=== PATIENT | female | born 2000 | race American Indian/Alaskan Native ===

== ENCOUNTER 2020-12-06 12:01 | Emergency (ER) | payer SELFPAY ==
--- NOTE | 2020-12-06 12:40 | Emergency Department Report ---
ED HPI - General Stated complaint: POSITIVE TEST/NAUSEA Time Seen by Provider: 12/06/20 12:33 - History of Present Illness Initial comments: There is a pleasant 20-year-old female presents the emergency department for evaluation of nausea. Patient reports she took a positive home test and has been feeling nauseous specifically in the morning since this happened. She reports her last menstrual cycle was first week of September. She denies any other symptoms. Denies any associated fever, chills, night sweats, headache, dizziness, blurry vision, nausea, vomiting, diarrhea, chest pain, shortness of breath or any other associated symptoms. - Related Data Previous Rx's Medication Instructions Recorded Last Taken Type Doxylamine Succinate/Vit B6 1 - 2 each PO QHS #20 tablet. 12/06/20 Unknown Rx [Leah Pappas 10-10 mg Tablet] 147/Iron/Folic Acid 1 each PO DAILY #30 tablet 12/06/20 Unknown Rx [Azesco Tablet] Allergies Allergy/AdvReac Type Severity Reaction Status Date / Time No Known Allergies Allergy Verified 09/25/15 01:01 ED Review of Systems ROS: Stated complaint: POSITIVE TEST/NAUSEA Other details as noted in HPI Comment: All other systems reviewed and negative Constitutional: denies: chills, fever Eyes: denies: eye pain, eye discharge, vision change ENT: denies: ear pain, throat pain Respiratory: denies: cough, shortness of breath, wheezing Cardiovascular: denies: chest pain, palpitations Endocrine: no symptoms reported Gastrointestinal: as per HPI, nausea. denies: abdominal pain, diarrhea Genitourinary: denies: urgency, dysuria, discharge Musculoskeletal: denies: back pain, joint swelling, arthralgia Skin: denies: rash, lesions Neurological: denies: headache, weakness, paresthesias Psychiatric: denies: anxiety, depression Hematological/Lymphatic: denies: easy bleeding, easy bruising ED Past Medical Hx - Past Medical History Hx Asthma: Yes - Family History Family history: no significant - Social History Smoking Status: Never Smoker Substance Use Type: None - Medications Home Medications: Home Medications Medication Instructions Recorded Confirmed Last Taken Type Doxylamine Succinate/Vit B6 1 - 2 each PO QHS #20 tablet. 12/06/20 Unknown Rx [Leah Pappas 10-10 mg Tablet] 147/Iron/Folic Acid 1 each PO DAILY #30 tablet 12/06/20 Unknown Rx [Azesco Tablet] ED Physical Exam - General Limitations: No Limitations General appearance: alert, in no apparent distress - Head Head exam: Present: atraumatic, normocephalic - Eye Eye exam: Present: normal appearance, PERRL, EOMI Pupils: Present: normal accommodation - ENT ENT exam: Present: normal exam, normal orophraynx, mucous membranes moist - Neck Neck exam: Present: normal inspection, full ROM. Absent: tenderness, meningismus - Respiratory Respiratory exam: Present: normal lung sounds bilaterally. Absent: respiratory distress, wheezes, rales, rhonchi, stridor - Cardiovascular Cardiovascular Exam: Present: regular rate, normal rhythm, normal heart sounds. Absent: systolic murmur, diastolic murmur, rubs, gallop - GI/Abdominal GI/Abdominal exam: Present: soft, normal bowel sounds. Absent: distended, tenderness, guarding, rebound, rigid - Extremities Exam Extremities exam: Present: normal inspection, full ROM, normal capillary refill. Absent: tenderness - Back Exam Back exam: Present: normal inspection, full ROM. Absent: tenderness, CVA tenderness (R), CVA tenderness (L) - Neurological Exam Neurological exam: Present: alert, oriented X3, normal gait - Psychiatric Psychiatric exam: Present: normal affect, normal mood - Skin Skin exam: Present: warm, dry, intact, normal color. Absent: rash ED Medical Decision Making - Medical Decision Making Patient is nontoxic and in no acute distress. Her exam was unremarkable. She had no symptoms of vaginal bleeding, abdominal pain or any other associated symptoms. I did offer work-up including ultrasound lab work however she politely declined and felt comfortable following up with an outpatient DOCUMENT REVIEW ATTORNEY to do her routine care. I will recommend vitamins and Diclegis for her nausea related to . Recommended frequent small meals, peppermint or letha and return to the emergency department any change or worsening symptoms. She verbalized understanding of the diagnosis, treatment plan and follow-up instructions and all of her questions were answered. - Differential Diagnosis Hyperemesis gravidarum, nausea, enteritis Critical care attestation.: If time is entered above; I have spent that time in minutes in the direct care of this critically ill patient, excluding procedure time. ED Disposition Clinical Impression: Nausea/vomiting in Disposition: DC- TO HOME OR SELFCARE Is pt being admited?: No Condition: Stable Instructions: Morning Sickness, [id number] Prescriptions: Doxylamine Succinate/Vit B6 [Diclegis 10-10 mg Tablet] 1 - 2 each PO QHS #20 tablet. 147/Iron/Folic Acid [Azesco Tablet] 1 each PO DAILY #30 tablet Referrals: [facility] [Provider Group] - 3-5 Days ORIANA FREIRE MD [Staff Physician] - 3-5 Days Forms: Work/School Release Form(ED) Time of Disposition: 12:41
[2020-12-06 12:53] VITALS: BP 107/52
== END 2020-12-06 12:56 | disposition home or self-care (01) ==
LOC: ED 12:01
DX: O21.8 Other vomiting complicating pregnancy (principal); Z3A.01 Less than 8 weeks gestation of pregnancy; Z79.899 Other long term (current) drug therapy
CPT/HCPCS: 99282

== ENCOUNTER 2020-12-08 18:59 | Emergency (ER) | payer SELFPAY ==
[2020-12-08 19:16] VITALS: BP 117/48
[2020-12-08 19:56] LABS: Bilirubin,Urine NEG (Negative); Blood,Urine NEG (Negative); Color,Urine Yellow (Yellow); Mucus,Urine FEW /HPF; Protein,Urine <15 mg/dL mg/dL (Negative); Urobilinogen,Urine < 2.0 mg/dL (<2.0)
[2020-12-08 20:06] LABS: HCG Qualitative,Urine Positive (Negative)
--- NOTE | 2020-12-08 20:29 | Emergency Department Report ---
Vomiting/Diarrhea - [facility] Chief Complaint: Nausea/Vomiting/Diarrhea Stated Complaint: VOMITING BLOOD;NAUSEA Time Seen by Provider: 12/08/20 19:56 ED Review of Systems ROS: Stated complaint: VOMITING BLOOD;NAUSEA Other details as noted in HPI ED Past Medical Hx - Past Medical History Previous Medical History?: Yes Hx Asthma: Yes - Surgical History Past Surgical History?: No - Social History Smoking Status: Never Smoker Substance Use Type: None - Medications Home Medications: Home Medications Medication Instructions Recorded Confirmed Last Taken Type Doxylamine Succinate/Vit B6 1 - 2 each PO QHS #20 tablet.dr 12/06/20 Unknown Rx [Diclegis Dr 10-10 mg Tablet] 147/Iron/Folic Acid 1 each PO DAILY #30 tablet 12/06/20 Unknown Rx [Azesco Tablet] Vomiting Diarrhea Exam - Exam General: Vital signs noted. No distress. Alert and acting appropriately. Neurologic: Alert and oriented, no deficits. Musculoskeletal: Unremarkable. ED Course Vital Signs 12/08/20 19:13 Temperature 99.7 F H Pulse Rate 74 Respiratory 18 Rate Blood Pressure 117/48 O2 Sat by Pulse 100 Oximetry Critical care attestation.: If time is entered above; I have spent that time in minutes in the direct care of this critically ill patient, excluding procedure time.
--- NOTE | 2020-12-08 21:21 | Emergency Department Report ---
ED General Adult HPI - General Chief complaint: Nausea/Vomiting/Diarrhea Stated complaint: VOMITING BLOOD;NAUSEA Time Seen by Provider: 12/08/20 19:56 Source: patient Mode of arrival: Ambulatory Limitations: No Limitations - History of Present Illness Initial comments: 20 y/o female comes in reports that she is nausea. She denies any abd pain. No vag d/c or vag bleeding. Was seen here 2 days ago and was placed on anti nausea but did not get it filled. Onset/Timin -: week(s) Severity scale (0 -10): 0 Consistency: intermittent Treatments Prior to Arrival: none - Related Data Previous Rx's Medication Instructions Recorded Last Taken Type Doxylamine Succinate/Vit B6 1 - 2 each PO QHS #20 tablet. 12/06/20 Unknown Rx [Leah Pappas 10-10 mg Tablet] 147/Iron/Folic Acid 1 each PO DAILY #30 tablet 12/06/20 Unknown Rx [Azesco Tablet] Allergies Allergy/AdvReac Type Severity Reaction Status Date / Time No Known Allergies Allergy Verified 09/25/15 01:01 ED Review of Systems ROS: Stated complaint: VOMITING BLOOD;NAUSEA Other details as noted in HPI Comment: All other systems reviewed and negative ED Past Medical Hx - Past Medical History Previous Medical History?: Yes Hx Asthma: Yes - Surgical History Past Surgical History?: No - Social History Smoking Status: Never Smoker Substance Use Type: None - Medications Home Medications: Home Medications Medication Instructions Recorded Confirmed Last Taken Type Doxylamine Succinate/Vit B6 1 - 2 each PO QHS #20 tablet. 12/06/20 Unknown Rx [Leah Pappas 10-10 mg Tablet] 147/Iron/Folic Acid 1 each PO DAILY #30 tablet 12/06/20 Unknown Rx [Azesco Tablet] ED Physical Exam - General Limitations: No Limitations General appearance: alert, in no apparent distress - Head Head exam: Present: atraumatic, normocephalic - Eye Eye exam: Present: normal appearance - Extremities Exam Extremities exam: Present: normal inspection - Back Exam Back exam: Present: normal inspection - Neurological Exam Neurological exam: Present: alert, oriented X3, normal gait - Psychiatric Psychiatric exam: Present: normal affect, normal mood - Skin Skin exam: Present: warm, dry, intact, normal color. Absent: rash ED Course Vital Signs 12/08/20 19:13 Temperature 99.7 F H Pulse Rate 74 Respiratory 18 Rate Blood Pressure 117/48 O2 Sat by Pulse 100 Oximetry ED Medical Decision Making - Medical Decision Making 20 y/o female comes in reports that she is nausea. She denies any abd pain. No vag d/c or vag bleeding. Was seen here 2 days ago and was placed on anti nausea but did not get it filled. Critical care attestation.: If time is entered above; I have spent that time in minutes in the direct care of this critically ill patient, excluding procedure time. ED Disposition Clinical Impression: Nausea/vomiting in Disposition: DC-01 TO HOME OR SELFCARE Is pt being admited?: No Does the pt Need Aspirin: No Condition: Stable Instructions: Nausea and Vomiting, Adult, [id number] Additional Instructions: Please filled your prescription. And follow with a [facility]ISING [facility]. Referrals: PRIMARY [facility]ARE, [Primary Care Provider] - 3-5 Days [facility] [Provider Group] - 3-5 Days [facility] [Provider Group] - 3-5 Days
== END 2020-12-08 21:37 | disposition home or self-care (01) ==
LOC: ED 18:59
DX: O21.8 Other vomiting complicating pregnancy (principal); Z79.899 Other long term (current) drug therapy
CPT/HCPCS: 36415; 81001; 81025; 84702; 99283

== ENCOUNTER 2021-07-23 07:03 | Inpatient (IN) | payer MEDICAID ==
[2021-07-23] MEDS ORDERED: AMPICILLIN/NS 2 GM/100 ML 2 GM/100 ML BAG IV ONE (08:12)
[2021-07-23] MEDS ORDERED: LOPERAMIDE 2 MG CAP PO PRN (08:12)
[2021-07-23] MEDS ORDERED: LIDOCAINE (2%) 20 MG/1 ML VIAL 20 ML MDV INFILTRATI ONE (08:12)
[2021-07-23] MEDS ORDERED: TERBUTALINE 1 MG/1 ML INJ SUB-Q PRN (08:12)
[2021-07-23] MEDS ORDERED: OXYTOCIN 10 UNIT/1 ML INJ IM PRN (08:12)
[2021-07-23] MEDS ORDERED: METHYLERGONOVINE MALEATE 0.2 MG/ML VIAL IM PRN (08:12)
[2021-07-23] MEDS ORDERED: CARBOPROST TROMETHAMINE 250 MCG/1 ML INJ IM PRN (08:12)
[2021-07-23] MEDS ORDERED: miSOPROStol 200 MCG TAB PR PRN (08:12)
[2021-07-23] MEDS ORDERED: ePHEDrine SULFATE 50 MG/1 ML INJ IV PRN (08:30)
[2021-07-23] MEDS ORDERED: fentaNYL 100 MCG/2 ML INJ IV PRN (08:30)
[2021-07-23] MEDS ORDERED: BUTORPHANOL 2 MG/1 ML INJ IV PRN (08:30)
[2021-07-23] MEDS ORDERED: ACETAMINOPHEN 325 MG TAB PO PRN ×2 (09:00→11:00)
[2021-07-23] MEDS ORDERED: ONDANSETRON 4 MG/2 ML INJ IV PRN ×2 (09:00→11:00)
[2021-07-23] MEDS ORDERED: OXYTOCIN DRIP 30 UNITS/500 ML BAG IV SCH ×2 (09:00)
[2021-07-23] MEDS ORDERED: LACTATED RINGERS 1,000 ML IV SCH (09:00)
[2021-07-23] MEDS ORDERED: NalbUPHINE 10 MG/1 ML INJ IV PRN (09:00)
[2021-07-23] MEDS ORDERED: SODIUM CHLORIDE 0.9% 500 ML 500 ML IV NR (10:00)
[2021-07-23] MEDS ORDERED: HYDROcodone/ACETAMINOPHEN 5-325 MG TAB PO PRN (10:00)
[2021-07-23] MEDS ORDERED: diphenhydrAMINE 25 MG CAP PO PRN (10:00)
[2021-07-23] MEDS ORDERED: WITCH HAZEL/ GLYCERIN PAD TP PRN (10:00)
--- NOTE | 2021-07-23 10:09 | History and Physical Report ---
History of Present Illness Date of examination: 07/23/21 Date of admission: 07/23/21 07:04 Chief complaint: Active labor at term. No care. History of present illness: . previous vag delivery. Past History Past Medical History: no pertinent history - Obstetrical History Expected Date of Delivery: 07/26/21 Actual Gestation: 39 Week(s) 4 Day(s) : 2 Medications and Allergies Allergies Allergy/AdvReac Type Severity Reaction Status Date / Time No Known Allergies Allergy Verified 09/25/15 01:01 Home Medications Medication Instructions Recorded Confirmed Last Taken Type Doxylamine Succinate/Vit B6 1 - 2 each PO QHS #20 tablet. 12/06/20 Unknown Rx [Diclegis Dr 10-10 mg Tablet] 147/Iron/Folic Acid 1 each PO DAILY #30 tablet 12/06/20 Unknown Rx [Azesco Tablet] Active Meds: Active Medications Acetaminophen (Acetaminophen 325 Mg Tab) 650 mg PO Q4H PRN PRN Reason: Pain, Mild (1-3) Acetaminophen (Acetaminophen 325 Mg Tab) 650 mg PO Q4H PRN PRN Reason: Pain MILD(1-3)/Fever >100.5/SONI Hydrocodone Bitart/Acetaminophen (Hydrocodone/Acetaminophen 5-325 Mg Tab) 2 each PO Q6H PRN PRN Reason: Pain, Moderate (4-6) Bisacodyl (Bisacodyl 10 Mg Rect Supp) 10 mg IL BID PRN PRN Reason: Constipation Butorphanol Tartrate (Butorphanol 2 Mg/1 Ml Inj) 2 mg IV Q2H PRN PRN Reason: Pain , Severe (7-10) Last Admin: 07/23/21 08:39 Dose: 2 mg Documented by: Carboprost Tromethamine (Carboprost Tromethamine 250 Mcg/1 Ml Inj) 250 mcg IM ONCE PRN PRN Reason: Uterine Bleeding Stop: 07/24/21 20:00 Diphenhydramine HCl (Diphenhydramine 25 Mg Cap) 25 mg PO Q6H PRN PRN Reason: Itching Ephedrine Sulfate (Ephedrine Sulfate 50 Mg/1 Ml Inj) 10 mg IV Q2M PRN PRN Reason: Hypotension Fentanyl (Fentanyl 100 Mcg/2 Ml Inj) 100 mcg IV Q2H PRN PRN Reason: Pain,Severe (7-10) LABOR PAIN Oxytocin/Sodium Chloride (Pitocin/Ns 30 Unit/500ml) 30 units in 500 mls @ 2 mls/hr IV TITR JL; Protocol Last Admin: 07/23/21 09:22 Dose: 4 ml/hr, 4 mls/hr Documented by: Lactated Ringer's (Lactated Ringers) 1,000 mls @ 125 mls/hr IV DIRECT JL Last Admin: 07/23/21 08:39 Dose: 125 mls/hr Documented by: Oxytocin/Sodium Chloride (Pitocin/Ns 30 Unit/500ml) 30 units in 500 mls @ 40 m ls/hr IV TITR JL; Protocol Sodium Chloride (Nacl 0.9% 500 Ml) 500 mls @ 0 mls/hr IV ONCE@1000 NR Stop: 07/23/21 20:00 Ibuprofen (Ibuprofen 600 Mg Tab) 600 mg PO Q6H JL Loperamide HCl (Loperamide 2 Mg Cap) 2 mg PO ONCE PRN PRN Reason: give with Hemabate Stop: 07/24/21 20:00 Magnesium Hydroxide (Magnesium Hydroxide (Mom) Oral Liqd Udc) 30 ml PO HS PRN PRN Reason: Constipation Methylergonovine Maleate (Methylergonovine Maleate 0.2 Mg/Ml Vial) 0.2 mg IM ONCE PRN PRN Reason: Uterine Bleeding Stop: 07/24/21 20:00 Mineral Oil (Mineral Oil 30 Ml Oral Liqd) 30 ml PO QHS PRN PRN Reason: Constipation Misoprostol (Misoprostol 200 Mcg Tab) 800 mcg IL ONCE PRN PRN Reason: Uterine Bleeding Stop: 07/24/21 20:00 Multi-Ingredient Ointment (Lanolin/Zinc/Dimethicone (Lansinoh) 7 Gm) 1 applic TP PRN PRN PRN Reason: Sore Nipples Nalbuphine HCl (Nalbuphine 10 Mg/1 Ml Inj) 10 mg IV Q2H PRN PRN Reason: Pain, Moderate (4-6) Ondansetron HCl (Ondansetron 4 Mg/2 Ml Inj) 4 mg IV Q8H PRN PRN Reason: Nausea And Vomiting Ondansetron HCl (Ondansetron 4 Mg/2 Ml Inj) 4 mg IV Q8H PRN PRN Reason: Nausea And Vomiting Oxytocin (Oxytocin 10 Unit/1 Ml Inj) 10 unit IM ONCE PRN PRN Reason: Uterine Bleeding Stop: 07/24/21 20:00 Promethazine HCl (Promethazine 25 Mg Rect Supp) 25 mg IL Q6H PRN PRN Reason: Nausea And Vomiting Promethazine HCl (Promethazine 25 Mg Tab) 25 mg PO Q6H PRN PRN Reason: Nausea And Vomiting Sodium Chloride (Sodium Chloride 0.9% 10 Ml Flush Syringe) 10 ml IV PRN NR Terbutaline Sulfate (Terbutaline 1 Mg/1 Ml Inj) 0.25 mg SUB-Q ONCE PRN PRN Reason: Hyperstimulation/Hypertonicity Stop: 07/24/21 20:00 Witch Isabell/Glycerin (Witch Isabell/ Glycerin Pad) 1 each TP PRN PRN PRN Reason: Hemorrhoid/cleansing/soothing Review of Systems All systems: negative - Vital Signs Vital signs: Vital Signs Pulse BP 90 119/61 07/23/21 07:27 07/23/21 07:27 Temp Pulse Resp BP Pulse Ox 98.2 F 60 17 135/60 97 07/23/21 07:51 07/23/21 09:59 07/23/21 07:51 07/23/21 09:55 07/23/21 09:59 - Physical Exam Lungs: Positive: Normal air movement Abdomen: Positive: normal appearance, normal bowel sounds Genitourinary (Female): Positive: normal external genitalia, normal perenium Vulva: both: normal Vagina: Positive: normal moisture Uterus: Positive: enlarged, normal contour Anus/Rectum: Positive: normal perianal skin Extremities: Positive: normal Deep Tendon Reflex Grade: Normal +2 - Obstetrical FHR: auscultation normal Cervical Dilatation: 10 Cervical Effacement Percentage: 100 station: 0 Uterine Contraction Frequency (min): q3min Uterine Contraction Pattern: Regular Results All other labs normal. Assessment and Plan - Patient Problems (1) Term Current Visit: Yes Status: Acute (2) Active labor at term Current Visit: Yes Status: Acute Plan to address problem: Vaginal delivery imminent.
--- NOTE | 2021-07-23 10:11 | Procedure Note ---
OB Delivery Note - Delivery Date of Delivery: 07/23/21 Surgeon: LUCIA NDIAYE Estimated blood loss: other (979cc) - Vaginal Delivery position: OA Intrapartum events: none Delivery induction: none Delivery augmentation: rupture of membranes, pitocin Delivery monitor: external FHT, external uterine Route of delivery: Delivery placenta: spontaneous Episiotomy: none Delivery laceration: none Anesthesia: none - Infant B at 1 minute: 8 at 5 minutes: 9
[2021-07-23 10:49] LABS: Basophils % (Auto) 0.2 % (0.0-1.8); Eosinophils % (Auto) 0.1 % (0.0-4.3); Hematocrit 30.5 % (30.3-42.9); Hemoglobin 10.1 gm/dl (10.1-14.3); Lymphocytes # (Auto) 1.6 K/mm3 (1.2-5.4); Mean Corpuscular HGB Conc 33 % (30-34); Mean Corpuscular Volume 71 fl (79-97); Monocytes # (Auto) 1.2 K/mm3 (0.0-0.8); Monocytes % (Auto) 12.3 % (0.0-7.3); Platelet Count 477 K/mm3 (140-440)
[2021-07-23 10:53] LABS: Red Cell Distribution Width 20.6 % (13.2-15.2)
[2021-07-23] MEDS ORDERED: PROMETHAZINE 25 MG TAB PO PRN (11:00)
[2021-07-23] MEDS ORDERED: PROMETHAZINE 25 MG RECT SUPP PR PRN (11:00)
[2021-07-23] MEDS ORDERED: LANOLIN/ZINC/DIMETHICONE (LANSINOH) 7 GM TP PRN (11:00)
[2021-07-23] MEDS: IBUPROFEN 600 MG TAB PO SCH ×2 (16:09→23:12)
[2021-07-23 18:26] LABS: Bilirubin,Urine NEG (Negative); Blood,Urine LG (Negative); Color,Urine Yellow (Yellow); Mucus,Urine 1+ /HPF; Urobilinogen,Urine < 2.0 mg/dL (<2.0)
[2021-07-23 18:27] LABS: RBC,Urine > 182.0 /HPF (0.0-6.0)
[2021-07-23 21:54] LABS: Hematocrit 27.3 % (30.3-42.9); Hemoglobin 8.5 gm/dl (10.1-14.3)
[2021-07-23] MEDS ORDERED: MINERAL OIL 30 ML ORAL LIQD PO PRN (22:00)
[2021-07-23] MEDS ORDERED: MAGNESIUM HYDROXIDE (MOM) ORAL LIQD UDC PO PRN (22:00)
[2021-07-24] MEDS: IBUPROFEN 600 MG TAB PO SCH ×2 (05:04→22:07)
--- NOTE | 2021-07-24 14:15 | Progress Note ---
Assessment and Plan - Patient Problems (1) Term Current Visit: Yes Status: Acute (2) Active labor at term Current Visit: Yes Status: Acute (3) Status post vaginal delivery Current Visit: Yes Status: Acute Plan to address problem: stable. Observation to continue. Subjective - Subjective Date of service: 07/24/21 Principal diagnosis: Day 1. Interval history: . previous vag delivery. Patient reports: appetite normal, voiding normally, pain well controlled, ambulating normally [place]: doing well Objective - Vital Signs Latest vital signs: Vital Signs Temp Pulse Resp BP BP Pulse Ox Pulse Ox 07/24/21 08:30 98 F 64 20 97/48 07/24/21 08:25 98 07/24/21 04:23 97.4 F L 72 16 102/50 99 07/24/21 00:03 98.0 F 75 18 108/56 100 07/23/21 20:48 98.1 F 82 18 108/48 100 07/23/21 19:30 98 07/23/21 15:57 98.1 F 89 16 104/63 97 Intake and Output 07/23/21 07/24/21 07/24/21 23:59 07:59 15:59 Intake Total 120 240 Output Total 1000 Balance -880 240 Intake: Oral 120 240 Output: Urine 1000 Void 1000 Other: Total, Intake Amount 120 240 Total, Output Amount 800 # Voids Void 1 1 1 - Exam Abdomen: Present: normal bowel sounds Uterus: Present: normal, firm Extremities: Present: normal Deep Tendon Reflex Grade: Normal +2 - Labs Labs: Abnormal lab results 07/23/21 07/23/21 Range/Units 21:23 Unknown Hgb 8.5 L (10.1-14.3) gm/dl Hct 27.3 L (30.3-42.9) % Urine WBC (Auto) 9.0 H (0.0-6.0) /HPF
[2021-07-25] MEDS: IBUPROFEN 600 MG TAB PO SCH ×2 (04:40→11:49)
--- NOTE | 2021-07-25 10:17 | Progress Note ---
Assessment and Plan - Patient Problems (1) Term Current Visit: Yes Status: Acute (2) Active labor at term Current Visit: Yes Status: Acute (3) Status post vaginal delivery Current Visit: Yes Status: Acute Plan to address problem: Stable and ready for home. Subjective - Subjective Date of service: 07/25/21 Principal diagnosis: Day 2. Interval history: . previous vag delivery. Patient reports: appetite normal, voiding normally, pain well controlled, ambulating normally [place]: doing well Objective - Vital Signs Latest vital signs: Vital Signs Temp Pulse Resp BP BP Pulse Ox Pulse Ox 07/25/21 09:19 100 07/25/21 07:18 97.2 F L 74 20 102/55 99 07/24/21 23:40 98.6 F 78 18 102/78 07/24/21 19:12 100 07/24/21 15:43 98.8 F 79 18 120/80 100 07/24/21 15:37 98.0 F 81 18 100/50 100 Intake and Output 07/24/21 07/25/21 07/25/21 23:59 07:59 15:59 Intake Total 760 300 Balance 760 300 Intake: Oral 760 Intake, Free Water 300 Other: Total, Intake Amount 200 # Voids Void 1 1 - Exam Lungs: Present: Normal air movement Abdomen: Present: normal appearance, soft, normal bowel sounds Uterus: Present: normal, firm Extremities: Present: normal Deep Tendon Reflex Grade: Normal +2 - Labs Labs: Abnormal lab results 07/23/21 Range/Units 08:25 Crossmatch See Detail
--- NOTE | 2021-07-25 10:19 | Discharge Summary ---
Providers - Providers Date of Admission: 07/23/21 07:04 Date of discharge: 07/25/21 Attending physician: LUCIA NDIAYE MD Primary care physician: LUCIA NDIAYE MD Hospitalization Reason for admission: active labor, IUP at term Delivery: Episiotomy: none Laceration: none Other procedures: none complications: none Discharge diagnosis: IUP at term delivered baby: male Condition at discharge: Good Disposition: 01 HOME / SELF CARE / HOMELESS - Discharge Diagnoses (1) Term Status: Resolved (2) Active labor at term Status: Resolved (3) Status post vaginal delivery Status: Acute Plan - Provider Discharge Summary Activity: routine, no sex for 6 weeks, no heavy lifting 4 weeks, no strenuous exercise Diet: routine Instructions: routine Additional instructions: [] Smoking cessation referral if applicable(refer to patient education folder for contact #) [] Refer to [facility] Booklet Call your doctor immediately for: * Fever > 100.5 * Heavy vaginal bleeding ( >1 pad per hour) * Severe persistent headache * Shortness of breath * Reddened, hot, painful area to leg or breast * Drainage or odor from incision. * Keep incision clean and dry at all times and follow doctor's instructions regarding bathing/showering - Follow up plan Follow up: LUCIA NDIAYE MD [Primary Care Provider] - 7 Days Forms: [facility] Discharge Summary
[2021-07-25 16:27] VITALS: BP 103/43
== END 2021-07-25 16:14 | disposition home or self-care (01) | DRG 775 ==
LOC: TRG 07:03 → APU 07:04 → TRG 08:20 → LD 08:34 → OB 11:31
PROVIDERS: ADMIT Obstetrics & Gynecology; ATTEND Obstetrics & Gynecology
PROC: 10E0XZZ Delivery of Products of Conception, External Approach (ICD-10-PCS; principal; 2021-07-23)
PROC: 3E0234Z Introduction of Serum, Toxoid and Vaccine into Muscle, Percutaneous Approach (ICD-10-PCS; 2021-07-24)
DX: O80 Encounter for full-term uncomplicated delivery (principal); Z37.0 Single live birth; Z3A.39 39 weeks gestation of pregnancy; Z20.822 Contact with and (suspected) exposure to COVID-19
CPT/HCPCS: 36415; 81001; 85014; 85018; 85025; 85027; 85461; 86592; 86706; 86762; 86850; 86900; 86901; 86920; 87086; 87806; 88307; G0378; J0290; J0595; J2590; J2790; J7120; U0003